=== PATIENT | male | born 1955 | race African-American/Black ===

== ENCOUNTER 2016-08-17 10:53 | Emergency (ER) | payer OTHER ==
[2016-08-17] MEDS ORDERED: Cyclobenzaprine 10 MG TAB ONE (11:15)
--- NOTE | 2016-08-17 11:36 | ERRECORD ---
[facility] EMERGENCY RECORD HPI BACK (11:23 [facility]) CHIEF COMPLAINT: Patient presents for evaluation of numbness, Patient presents for evaluation of pain. HISTORIAN: History provided by patient, 61M presents reporting that for the last two months he has had right anterior thigh numbness. He also reports that his vision has been getting gradually worse for many months. Describes the vision as trouble focusing when he is reading. Describes numbness over anterior thigh, and reports he has problems with L4-L5 and is scheduled for back surgery. Denies trauma, denies distal leg pain, denies other injury or complaint. MECHANISM OF INJURY: No apparent mechanism of injury. LOCATION: Symptoms are localized to the back, to lumbar spine. QUALITY: Pain is dull in nature. TIME COURSE: Gradual onset of symptoms, There has been no change in the patient's symptoms over time. ASSOCIATED WITH: Associated with numbness, for 2 months, constant. EXACERBATED BY: Patient's condition exacerbated by nothing. RELIEVED BY: Patient's condition relieved by nothing. RISK FACTORS: No malignancy risks identified, Herniated disc risks:, known back problems, Epidural risk factors include blood thinners, No epidural abcess risk factors. ROS (11:25 [facility]) CONSTITUTIONAL: Negative constitutional review of systems, Historian denies chills, denies fever. EYES: Negative eye review of systems, Historian denies eye pain, denies eye discharge, denies vision changes. ENT: Negative ears, nose, throat review of systems, Historian denies rhinorrhea, denies sore throat. CARDIOVASCULAR: Negative cardiovascular review of systems, Historian denies chest pain, denies palpitations. RESPIRATORY: Negative respiratory review of systems, Historian denies cough, denies shortness of breath. GI: Negative gastrointestinal review of systems, Historian denies abdominal pain, denies constipation, denies diarrhea, denies nausea, denies vomiting. GENITOURINARY MALE: Negative genitourinary review of systems, Historian denies dysuria, denies hematuria. MUSCULOSKELETAL: right anterior thigh numbness, right lower back pain for months. no trauma or injury. SKIN: Negative skin review of systems, Historian denies rash, denies skin changes. NEUROLOGIC: Negative neurologic review of systems, Historian denies headache. HEMO/LYMPHATIC: Normal hematologic/lymphatic system review, Historian denies abnormal blood clotting. PAST MEDICAL HISTORY (11:04 [facility]) &a-1R&a+25V*p+0X*r3627B*c202B*c15G*c2P*p-0X&a-25V&a+1R Name: Chilango Abarca : 1955 M61 MedRec: [id number] AcctNum: [id number] Prepared: Ivon Aug 17, 2016 11:40 by Interface Page 1 of 4 pMD [facility] EMERGENCY RECORD MEDICAL HISTORY: Past medical history includes cardiac history, valvular heart disease, aortic stenosis, Past medical history includes pulmonary disease, emphysema, Notes: LOWER BACK "INJURY", Past medical history includes cardiac history, PT REPORTS "IRREGULAR HEART BEAT", POSSIBLE BRADYCARDIA, Past medical history includes history of hyperlipidemia, currently not being treated, Past medical history includes history of hypertension, Past medical history includes pulmonary disease, chronic obstructive pulmonary disease. MALE SURGICAL HISTORY: Aortic valve replacement 05/10/2016. PSYCHIATRIC HISTORY: Psychiatric history includes, depression. SOCIAL HISTORY: Patient denies alcohol use, Patient denies drug use, Patient currently uses tobacco, Smokes cigars, Occasional or some day smoker. FAMILY HISTORY: No significant family history. KNOWN ALLERGIES lisinopril: - cough No Known Drug Allergies (Unconfirmed) CURRENT MEDICATIONS (11:01 [facility]) amLODIPine: TABLET : Strength - 10 mg : ORAL Patient Dose: Oral once a day (in the morning). Lasix: TABLET : Strength - 40 mg : ORAL Patient Dose: 40 mg Oral once a day (in the morning). VITAL SIGNS (11:05 [facility]) VITAL SIGNS: BP: 149/86, Pulse: 79, Resp: 18, Temp: 98.1 (Oral), Pain: 5, O2 sat: 94 on Room Air, Time: 08/17/2016 11:05. PHYSICAL EXAM (11:25 [facility]) CONSTITUTIONAL: Vital signs reviewed, Patient afebrile, Pulse normal, Blood pressure normal, Respiratory rate normal, Patient appears non toxic, Patient appears pain free, Patient alert and oriented to person, place and time. HEAD: Head exam normal, Head exam included findings of head atraumatic, normocephalic. EYES: Eye exam normal, Eye exam included findings of eyelids normal to inspection, Pupils equally round and reactive to light, Extraocular muscles intact, no nystagmus. ENT: ENT exam normal, Ear exam normal, external ear normal, tympanic membranes normal, no bleeding, Pharynx exam normal, Uvula exam normal, Tonsil exam normal, Mouth exam normal, mucous membranes moist, teeth normal. NECK: Neck exam normal, Neck exam included findings of normal range of motion, Trachea midline, no meningeal signs, no cervical &a-1R&a+25V*p+0X*u2316X*c202B*c15G*c2P*p-0X&a-25V&a+1R Name: Chilanog Abarca : 1955 M61 MedRec: [id number] AcctNum: [id number] Prepared: Ivon Aug 17, 2016 11:40 by Interface Page 2 of 4 pMD [facility] EMERGENCY RECORD adenopathy, no tenderness. RESPIRATORY CHEST: Respiratory and chest exam normal, Respiratory exam included findings of no respiratory distress, Breath sounds clear. CARDIOVASCULAR: Cardiovascular assessment normal, Cardiovascular exam included findings of heart rate regular rate and rhythm, Heart sounds normal. ABDOMEN MALE: Abdominal exam included findings of abdomen nontender, Bowel sounds normal, no distension, no mass, no pulsatile masses, no peritoneal signs, no rigidity, no guarding, no rebound, Rovsing's sign absent. BACK: right lumbar paraspinal tenderness, no midline tenderness. UPPER EXTREMITY: Upper extremity exam normal, Upper extremity exam included findings of inspection normal, Range of motion normal, Motor strength normal, Sensation intact, Radial pulse normal. LOWER EXTREMITY: Lower extremity exam normal, Lower extremity exam included findings of inspection normal, Range of motion normal, Motor strength normal, Sensation intact, Posterior tibial pulse normal, Pedal pulse normal. NEURO: Neuro exam normal, Neuro exam findings include patient oriented to person, place and time, Speech normal, Gait normal. SKIN: Skin exam normal, Skin exam included findings of skin warm, dry, and normal in color, no rash. PSYCHIATRIC: Psychiatric exam normal, Normal affect. MEDICATION ADMINISTRATION SUMMARY Drug Name: Flexeril, Dose Ordered: 10 mg, Route: Oral, Status: Given, Time: 11:17 08/17/2016, Detailed record available in Medication Service section. DOCTOR NOTES (11:27 [facility]) RE-EVALUATION: Routine re-evaluation, after administration of analgesics, The patient's condition has improved. TEXT: Patient presented with complaints of right thigh numbness that has been present for months, without progression or change. Based on his reported history of low back pain as well, I believe his anterior thigh pain in the L3-L5 dermatome region is likely secondary to his lumbar spine issues. He has no findings that would be concerning for epidural hematoma or abscess, and his time frame is not consistent. Nothing to suggest cauda equina syndrome. he can follow up with his back specialist as an outpatient. PATIENT STATUS: Patient has improved since arrival to emergency department. PATIENT PLAN: The patient will be discharged, The patient will follow up with primary care physician. PROBLEM LIST No recorded problems &a-1R&a+25V*p+0X*d8052R*c202B*c15G*c2P*p-0X&a-25V&a+1R Name: Chilango Abarca : 1955 M61 MedRec: [id number] AcctNum: [id number] Prepared: Ivon Aug 17, 2016 11:40 by Interface Page 3 of 4 pMD [facility] EMERGENCY RECORD DIAGNOSIS (11:13 [facility]) FINAL: PRIMARY: LOW BACK PAIN. PRESCRIPTION (11:13 [facility]) cyclobenzaprine: TABLET : 10 mg : ORAL : Quantity: 10 Unit: mg Route: ORAL Schedule: every 8 hours PRN Dispense: 15 Unit: tab(s) May substitute. Refills: No Refills . NOTES: No refills. DISPOSITION PATIENT: Disposition Type: Discharge, Disposition: *Discharge Home. (11:13 [facility]) Patient left the department. (11:38 [facility]) Garcia: SHARAD=MD Wilkinson Jason K[facility]=DIOMEDES Johns, Peggy &a-1R&a+25V*p+0X*j7280K*c202B*c15G*c2P*p-0X&a-25V&a+1R Name: Chilango Abarca : 1955 M61 MedRec: [id number] AcctNum: [id number] Prepared: Ivon Aug 17, 2016 11:40 by Interface Page 4 of 4 pMD MTDD
--- NOTE | 2016-08-17 11:42 | PICIS ---
[facility] EMERGENCY RECORD TRIAGE (10:59 [facility]) TRIAGE NOTES: right upper leg numbness for several weeks, hx aortic valve replacement 05/10/16. (10:59 [facility]) PATIENT: NAME: Chilango Abarca, AGE: 61, GENDER: male, : [facility] 1955, TIME OF GREET: SunAug 17, 2016 10:53, PREFERRED LANGUAGE: Lao, ETHNICITY: Not or , ECODE BILLING MAP: [facility], SSN: [id number], Zip Code: [address], KG WEIGHT: 63.50, PHONE: , , , PERSON ID: [id number], PCP: [facility]. (10:59 [facility]) PAYMENT: [employer]. (11:28) COMPLAINT: Right leg numbness. (10:59 [facility]) ADMISSION: URGENCY: 3 Urgent, ADMISSION SOURCE: Home, TRANSPORT: CAR, BED: ER -02. (10:59 [facility]) ASSESSMENT: Assessment: A7OX4. RR AND UNLBAORED. AMBULATED IWTH WALKER, Symptoms began greater than 1 week ago. (11:04 [facility]) PAIN: Patient complains of pain described as, Location CHRONIC BACK. (11:04 [facility]) SIRS SCORING: Heart Rate 55-109 (0), Temp range 96.8-101.1 (0), respiratory rate 12-24 (0), Mental Status altered: no (0), Infection or Suspected Infection: No. (11:04 [facility]) TRIAGE SCREENING: Patient denies suicidal ideation, Patient denies presence of domestic violence. (11:04 [facility]) PROVIDERS: TRIAGE NURSE: Peggy Johns RN. (10:59 [facility]) PREVIOUS VISIT ALLERGIES: lisinopril. (10:59 [facility]) lisinopril. (11:04 [facility]) KNOWN ALLERGIES lisinopril: - cough No Known Drug Allergies (Unconfirmed) CURRENT MEDICATIONS (11:01 [facility]) amLODIPine: TABLET : Strength - 10 mg : ORAL Patient Dose: Oral once a day (in the morning). Lasix: TABLET : Strength - 40 mg : ORAL Patient Dose: 40 mg Oral once a day (in the morning). VITAL SIGNS (11:05 [facility]) VITAL SIGNS: BP: 149/86, Pulse: 79, Resp: 18, Temp: 98.1 (Oral), Pain: 5, O2 sat: 94 on Room Air, Time: 08/17/2016 11:05. NURSING ASSESSMENT: EXTREMITY LOWER (11:20 [facility]) CONSTITUTIONAL: Patient arrives, Personal walker, Gait steady, History obtained from patient, Patient appears comfortable, Patient cooperative, Patient alert, Oriented to person, place and time, Skin warm, Skin dry, Skin normal in color, Mucous membranes pink, Mucous membranes moist, Patient is well-groomed, Patient complains of Right upper leg numbess, Patient reports right &a-1R&a+25V*p+0X*p2624Q*c202B*c15G*c2P*p-0X&a-25V&a+1R Name: Chilango Abarca : 1955 M61 MedRec: [id number] AcctNum: [id number] Prepared: [facility] Aug 17, 2016 11:46 by Interface Page 1 of 6 pMD [facility] EMERGENCY RECORD upper leg numbness and tingling started 1.5 months ago, Reports chronic right sided back pain. No radiation of numbness down leg. PAIN: numb pain, right side of back, on a scale 0-10 patient rates pain as 5. LEFT LOWER EXTREMITY: Left lower extremity assessment findings include capillary refill less than 2 seconds, Skin color normal, Skin temperature warm, Distal sensation intact, Muscle tone normal, muscle strength 5, no edema present, dorsalis pedis pulse is +3. RIGHT LOWER EXTREMITY: Right lower extremity assessment findings include capillary refill less than 2 seconds, Skin color normal, Skin temperature warm, Distal sensation intact, Muscle tone normal, muscle strength 5, dorsalis pedis pulse is +3, Inspection findings include no contusion, Inspection findings include no rash, Inspection findings include no swelling, Notes: reports numbness in right anterior thigh. NOTES: Patient tolerated procedure well. NURSING PROCEDURE: DISCHARGE NOTE (11:40 [facility]) DISCHARGE: Patient discharged to home, ambulating with walker, family driving, accompanied by friend, Summary of Care printed/ provided, Transition record given to patient, Discharge instructions given to patient, Simple or moderate discharge teaching performed, by DIOMEDES Woods, Discharge instructions and follow up reviewed with patient. Pt ambulatory to discharge desk., Prescriptions given and instructions on side effects given, Name of prescription(s) given: FLEXRIL, Above person(s) verbalized understanding of discharge instructions and follow-up care. BELONGINGS: Belongings remain with patient, Valuables remain with patient. NURSING PROCEDURE: NURSE NOTES (11:23 [facility]) NURSES NOTES: Notes: Called [facility] in [place] to inform them we did not believe numbness was cardiac related at patient request. Spoke with Mariann. MEDICATION ADMINISTRATION SUMMARY Drug Name: Flexeril, Dose Ordered: 10 mg, Route: Oral, Status: Given, Time: 11:17 08/17/2016, Detailed record available in Medication Service section. MEDICATION SERVICE Flexeril: Order: Flexeril (cyclobenzaprine HCl) - Dose: 10 mg : Oral Ordered by: Pravin Wilkinson MD Entered by: Pravin Wilkinson MD [facility] Aug 17, 2016 11:12 , Acknowledged by: Peggy Johns RN [facility] Aug 17, 2016 11:14 Documented as given by: Peggy Johns RN [facility] Aug 17, 2016 11:17 Patient, Medication, Dose, Route and Time verified prior to &a-1R&a+25V*p+0X*h7517F*c202B*c15G*c2P*p-0X&a-25V&a+1R Name: Chilango Abarca : 1955 M61 MedRec: [id number] AcctNum: [id number] Prepared: Ivon Aug 17, 2016 11:46 by Interface Page 2 of 6 D [facility] EMERGENCY RECORD administration. Amount given: 10mg, Site: Medication administered P.O., Correct patient, time, route, dose and medication confirmed prior to administration, Patient advised of actions and side-effects prior to administration, Allergies confirmed and medications reviewed prior to administration, Patient in position of comfort, Side rails up, Cart in lowest position, Family at bedside. : Follow Up : Response assessment performed, No signs or symptoms of allergic reaction noted. (11:30 [facility]) [facility] BACK (11:23 [facility]) CHIEF COMPLAINT: Patient presents for evaluation of numbness, Patient presents for evaluation of pain. HISTORIAN: History provided by patient, 61M presents reporting that for the last two months he has had right anterior thigh numbness. He also reports that his vision has been getting gradually worse for many months. Describes the vision as trouble focusing when he is reading. Describes numbness over anterior thigh, and reports he has problems with L4-L5 and is scheduled for back surgery. Denies trauma, denies distal leg pain, denies other injury or complaint. MECHANISM OF INJURY: No apparent mechanism of injury. LOCATION: Symptoms are localized to the back, to lumbar spine. QUALITY: Pain is dull in nature. TIME COURSE: Gradual onset of symptoms, There has been no change in the patient's symptoms over time. ASSOCIATED WITH: Associated with numbness, for 2 months, constant. EXACERBATED BY: Patient's condition exacerbated by nothing. RELIEVED BY: Patient's condition relieved by nothing. RISK FACTORS: No malignancy risks identified, Herniated disc risks:, known back problems, Epidural risk factors include blood thinners, No epidural abcess risk factors. ROS (11:25 [facility]) CONSTITUTIONAL: Negative constitutional review of systems, Historian denies chills, denies fever. EYES: Negative eye review of systems, Historian denies eye pain, denies eye discharge, denies vision changes. ENT: Negative ears, nose, throat review of systems, Historian denies rhinorrhea, denies sore throat. CARDIOVASCULAR: Negative cardiovascular review of systems, Historian denies chest pain, denies palpitations. RESPIRATORY: Negative respiratory review of systems, Historian denies cough, denies shortness of breath. GI: Negative gastrointestinal review of systems, Historian denies abdominal pain, denies constipation, denies diarrhea, denies nausea, denies vomiting. GENITOURINARY MALE: Negative genitourinary review of systems, Historian denies dysuria, denies hematuria. &a-1R&a+25V*p+0X*l9722G*c202B*c15G*c2P*p-0X&a-25V&a+1R Name: Chilango Abarca : 1955 M61 MedRec: [id number] AcctNum: [id number] Prepared: Ivon Aug 17, 2016 11:46 by Interface Page 3 of 6 pMD [facility] EMERGENCY RECORD MUSCULOSKELETAL: right anterior thigh numbness, right lower back pain for months. no trauma or injury. SKIN: Negative skin review of systems, Historian denies rash, denies skin changes. NEUROLOGIC: Negative neurologic review of systems, Historian denies headache. HEMO/LYMPHATIC: Normal hematologic/lymphatic system review, Historian denies abnormal blood clotting. PAST MEDICAL HISTORY (11:04 [facility]) MEDICAL HISTORY: Past medical history includes cardiac history, valvular heart disease, aortic stenosis, Past medical history includes pulmonary disease, emphysema, Notes: LOWER BACK "INJURY", Past medical history includes cardiac history, PT REPORTS "IRREGULAR HEART BEAT", POSSIBLE BRADYCARDIA, Past medical history includes history of hyperlipidemia, currently not being treated, Past medical history includes history of hypertension, Past medical history includes pulmonary disease, chronic obstructive pulmonary disease. MALE SURGICAL HISTORY: Aortic valve replacement 05/10/2016. PSYCHIATRIC HISTORY: Psychiatric history includes, depression. SOCIAL HISTORY: Patient denies alcohol use, Patient denies drug use, Patient currently uses tobacco, Smokes cigars, Occasional or some day smoker. FAMILY HISTORY: No significant family history. PHYSICAL EXAM (11:25 [facility]) CONSTITUTIONAL: Vital signs reviewed, Patient afebrile, Pulse normal, Blood pressure normal, Respiratory rate normal, Patient appears non toxic, Patient appears pain free, Patient alert and oriented to person, place and time. HEAD: Head exam normal, Head exam included findings of head atraumatic, normocephalic. EYES: Eye exam normal, Eye exam included findings of eyelids normal to inspection, Pupils equally round and reactive to light, Extraocular muscles intact, no nystagmus. ENT: ENT exam normal, Ear exam normal, external ear normal, tympanic membranes normal, no bleeding, Pharynx exam normal, Uvula exam normal, Tonsil exam normal, Mouth exam normal, mucous membranes moist, teeth normal. NECK: Neck exam normal, Neck exam included findings of normal range of motion, Trachea midline, no meningeal signs, no cervical adenopathy, no tenderness. RESPIRATORY CHEST: Respiratory and chest exam normal, Respiratory exam included findings of no respiratory distress, Breath sounds clear. CARDIOVASCULAR: Cardiovascular assessment normal, Cardiovascular exam included findings of heart rate regular rate and rhythm, Heart &a-1R&a+25V*p+0X*m4919B*c202B*c15G*c2P*p-0X&a-25V&a+1R Name: Chilango Abarca : 1955 M61 MedRec: [id number] AcctNum: [id number] Prepared: SunAug 17, 2016 11:46 by Interface Page 4 of 6 pMD [facility] EMERGENCY RECORD sounds normal. ABDOMEN MALE: Abdominal exam included findings of abdomen nontender, Bowel sounds normal, no distension, no mass, no pulsatile masses, no peritoneal signs, no rigidity, no guarding, no rebound, Rovsing's sign absent. BACK: right lumbar paraspinal tenderness, no midline tenderness. UPPER EXTREMITY: Upper extremity exam normal, Upper extremity exam included findings of inspection normal, Range of motion normal, Motor strength normal, Sensation intact, Radial pulse normal. LOWER EXTREMITY: Lower extremity exam normal, Lower extremity exam included findings of inspection normal, Range of motion normal, Motor strength normal, Sensation intact, Posterior tibial pulse normal, Pedal pulse normal. NEURO: Neuro exam normal, Neuro exam findings include patient oriented to person, place and time, Speech normal, Gait normal. SKIN: Skin exam normal, Skin exam included findings of skin warm, dry, and normal in color, no rash. PSYCHIATRIC: Psychiatric exam normal, Normal affect. EVENTS TRANSFER: Triage to Emergency Emergency Room -02. (SunAug 17, 2016 10:59 [facility]) Removed from Emergency Emergency Room -02. (11:38 [facility]) [facility]11[facility] RE-EVALUATION: Routine re-evaluation, after administration of analgesics, The patient's condition has improved. TEXT: Patient presented with complaints of right thigh numbness that has been present for months, without progression or change. Based on his reported history of low back pain as well, I believe his anterior thigh pain in the L3-L5 dermatome region is likely secondary to his lumbar spine issues. He has no findings that would be concerning for epidural hematoma or abscess, and his time frame is not consistent. Nothing to suggest cauda equina syndrome. he can follow up with his back specialist as an outpatient. PATIENT STATUS: Patient has improved since arrival to emergency department. PATIENT PLAN: The patient will be discharged, The patient will follow up with primary care physician. PROBLEM LIST No recorded problems DIAG[facility]IS (11:13 [facility] FINAL: PRIMARY: LOW BACK PAIN. DISPOSITION PATIENT: Disposition Type: Discharge, Disposition: *Discharge Home. (11:13 [facility]) &a-1R&a+25V*p+0X*y9404B*c202B*c15G*c2P*p-0X&a-25V&a+1R Name: Chilango Abarca : 1955 M61 MedRec: [id number] AcctNum: [id number] Prepared: Ivon Aug 17, 2016 11:46 by Interface Page 5 of 6 pMD [facility] EMERGENCY RECORD Patient left the department. (11:38 [facility]) INSTRUCTION (11:14 [facility]) DISCHARGE: LOW BACK PAIN GENERAL. FOLLOWUP: ID, Outpatient Clinic, Clinic, [address] [place] [address], [facility] [id number], [phone]. SPECIAL: Hot packs on right lower back. Muscle relaxants as needed. Stretch if possible. Follow up with your back surgeon. Return to the ED if you have changes to your bowel or bladder habits. PRESCRIPTION (11:13 [facility]) cyclobenzaprine: TABLET : 10 mg : ORAL : Quantity: 10 Unit: mg Route: ORAL Schedule: every 8 hours PRN Dispense: 15 Unit: tab(s) May substitute. Refills: No Refills . NOTES: No refills. IMAGING (11:41 [facility]) *DISCHARGE INSTRUCTIONS RECEIPT: Image captured from scanner. *SUPPLY CHARGE SHEET: Image captured from scanner. ADMIN DIGITAL SIGNATURE: MD Wilkinson Jason. [facility]11[facility]29 [facility] DIOMEDES Johns, Peggy. (11:46 [facility]) Garcia: WALTER=MD Wilkinson Jason KMOR=DIOMEDES Johns, Peggy &a-1R&a+25V*p+0X*d6875X*c202B*c15G*c2P*p-0X&a-25V&a+1R Name: Chilango Abarca : 1955 M61 MedRec: [id number] AcctNum: [id number] Prepared: [facility] Aug 17, 2016 11:46 by Interface Page 6 of 6 pMD MTDD
== END 2016-08-17 11:35 | disposition home or self-care (01) ==
LOC: BURERS 10:53
DX: M54.5 Low back pain (principal); J43.9 Emphysema, unspecified; E78.5 Hyperlipidemia, unspecified; I10 Essential (primary) hypertension; F32.9 Major depressive disorder, single episode, unspecified; F17.210 Nicotine dependence, cigarettes, uncomplicated
CPT/HCPCS: 99283

== ENCOUNTER 2018-03-03 20:25 | Emergency (ER) | payer OTHER, SELFPAY ==
[2018-03-03] MEDS ORDERED: Sterile Water 0 ML ONE (20:54)
[2018-03-03] MEDS ORDERED: cefTRIAXone\\ROCEPHIN 1 GM VIAL ONE (20:54)
== END 2018-03-03 21:05 | disposition home or self-care (01) ==
LOC: BURERS 20:25
DX: L03.113 Cellulitis of right upper limb (principal); E78.5 Hyperlipidemia, unspecified; I10 Essential (primary) hypertension; J44.9 Chronic obstructive pulmonary disease, unspecified; F41.9 Anxiety disorder, unspecified; F32.9 Major depressive disorder, single episode, unspecified; F17.210 Nicotine dependence, cigarettes, uncomplicated; Z79.899 Other long term (current) drug therapy; Z79.01 Long term (current) use of anticoagulants
CPT/HCPCS: 96372; J0696

== ENCOUNTER 2018-03-12 17:34 | Emergency (ER) | payer OTHER ==
[2018-03-12] MEDS ORDERED: Pantoprazole 40 MG VIAL ONE (18:08)
[2018-03-12] MEDS ORDERED: Ondansetron HCl/PF 4 MG/2 ML Vial ONE (18:08)
[2018-03-12] MEDS ORDERED: Morphine 4 MG/ML Carpuject ONE (18:08)
[2018-03-12 18:19] LABS: #Basophils 0.1 thou/uL (0.0-0.2); #Lymphocytes 0.9 thou/uL (1.20-3.40); #Monocytes 0.2 thou/uL (0.11-0.59); %Basophils 0.6 % (0.0-1.0); %Lymphocytes 7.8 % (21.0-51.0); %Monocytes 2.2 % (0.0-10.0); %Neutrophils 89.4 % (42.0-75.0); Hemoglobin 14.1 g/dL (14.0-18.0); Mean Corpuscular HGB CONC 35.9 g/dL (32.0-36.0); Mean Corpuscular Hemoglobin 31.5 pg (27.0-31.0); Mean Corpuscular Volume 87.6 fL (78.0-98.0); Mean Platelet Volume 5.8 fL (7.4-10.4); Platelet Count 277 thou/uL (130-400); RBC Distribution Width 12.5 % (11.5-14.5); White Blood Cell (WBC) Count 11.1 thou/uL (4.8-10.8)
[2018-03-12 18:36] LABS: ALT (SGPT) 21 U/L (8-55); AST (SGOT) 25 U/L (5-34); Albumin 4.8 g/dL (3.4-4.8); Alkaline Phosphatase 89 U/L (40-150); Anion Gap 19 mmol/L (10-20); BUN (Urea Nitrogen) 11 mg/dL (8.4-25.7); Bilirubin, Total 1.1 mg/dL (0.2-1.2); Calc. Creatinine Clearance 0 mL/min (70-130); Calcium 9.9 mg/dL (7.8-10.44); Carbon Dioxide 20 mmol/L (23-31); Chloride 102 mmol/L (98-107); Estimated GFR-MDRD 89; Globulin 3.8 g/dL (2.4-3.5); Glucose 126 mg/dL (80-115); Potassium 4.2 mmol/L (3.5-5.1); Protein, Total 8.6 g/dL (5.8-8.1); Sodium 137 mmol/L (136-145)
[2018-03-12 18:38] LABS: CKMB 1.4 ng/mL (0-6.6); Troponin I Less than 0.010 ng/mL (< 0.028)
[2018-03-12 18:42] LABS: INR-International Normal Ratio 2.1; Prothrombin Time 23.4 SEC (12.0-14.7)
== END 2018-03-12 19:12 | disposition home or self-care (01) ==
LOC: BURERS 17:34
DX: K29.00 Acute gastritis without bleeding (principal); E78.5 Hyperlipidemia, unspecified; I10 Essential (primary) hypertension; J44.9 Chronic obstructive pulmonary disease, unspecified; F41.9 Anxiety disorder, unspecified; F32.9 Major depressive disorder, single episode, unspecified; F17.210 Nicotine dependence, cigarettes, uncomplicated; Z79.899 Other long term (current) drug therapy; Z79.01 Long term (current) use of anticoagulants
CPT/HCPCS: 80053; 82553; 84484; 85025; 85610; 93005; 96374; 96375; C9113; J2270; J2405

== ENCOUNTER 2018-04-26 17:00 | Emergency (ER) | payer OTHER | END 2018-04-26 17:05 | disposition left against medical advice (07) | LOC: BURERS 17:00 | DX: R10.13 Epigastric pain (principal); E78.5 Hyperlipidemia, unspecified; I10 Essential (primary) hypertension; J44.9 Chronic obstructive pulmonary disease, unspecified; F41.9 Anxiety disorder, unspecified; F32.9 Major depressive disorder, single episode, unspecified; F17.210 Nicotine dependence, cigarettes, uncomplicated ==

== ENCOUNTER 2019-02-08 11:12 | Emergency (ER) | payer OTHER | END 2019-02-08 11:50 | disposition home or self-care (01) | LOC: BURERS 11:12 | DX: Z76.0 Encounter for issue of repeat prescription (principal); E78.5 Hyperlipidemia, unspecified; I10 Essential (primary) hypertension; J44.9 Chronic obstructive pulmonary disease, unspecified; F41.9 Anxiety disorder, unspecified; F32.9 Major depressive disorder, single episode, unspecified; F17.210 Nicotine dependence, cigarettes, uncomplicated; Z79.01 Long term (current) use of anticoagulants | CPT/HCPCS: 99281 ==

== ENCOUNTER 2019-02-21 04:50 | Emergency (ER) | payer OTHER ==
[2019-02-21] MEDS ORDERED: Acetaminophen 500 MG TAB ONE (05:35)
[2019-02-21] MEDS ORDERED: traMADol HCl 50 MG TAB ONE (05:35)
--- NOTE | 2019-02-21 07:41 | RAD ---
PELVIS 1 VIEW: DATE: 02/21/2019. FINDINGS: No fracture was seen. The hips are symmetric. The pubic symphysis shows no widening or offset. The SI joints are symmetrical within the limitations of the patient being turned slightly. Arcuate line s of the sacrum appear intact. IMPRESSION: No acute finding. POS: HOME
--- NOTE | 2019-02-21 07:42 | RAD ---
LEFT HIP 2 VIEWS: DATE: 02/21/2019. FINDINGS: No fracture or dislocation was seen. The joint space is normal in width. IMPRESSION: No acute findings. POS: HOME
--- NOTE | 2019-02-21 07:42 | RAD ---
RIGHT HIP 2 VIEWS: DATE: 02/21/2019. FINDINGS: No fracture or dislocation was seen. The joint space is normal in width. IMPRESSION: No acute findings. POS: HOME
== END 2019-02-21 05:41 | disposition home or self-care (01) ==
LOC: BURERS 04:50
DX: S70.02XA Contusion of left hip, initial encounter (principal); S70.01XA Contusion of right hip, initial encounter; I10 Essential (primary) hypertension; E78.5 Hyperlipidemia, unspecified; J44.9 Chronic obstructive pulmonary disease, unspecified; F41.9 Anxiety disorder, unspecified; F32.9 Major depressive disorder, single episode, unspecified; F17.210 Nicotine dependence, cigarettes, uncomplicated; Z79.899 Other long term (current) drug therapy; W18.30XA Fall on same level, unspecified, initial encounter
CPT/HCPCS: 72170